=== PATIENT | female | born 1955 | race Caucasian/White ===

== ENCOUNTER 2022-09-22 12:40 | Emergency (ER) | payer OTHER, SELFPAY ==
[2022-09-22] VITALS (18 sets, daily range): BP systolic 136–154; BP diastolic 72–101; PULSE 80–97; RESP 15–35; TEMP 36.8; O2SAT 94–98; BMI 41.3
--- NOTE | 2022-09-22 13:20 | CT_ITS ---
[address] [address] Patient Name: CORI HILTON MRN: [id number] date: 1955 Sex: F Assigned Patient Location: ER Current Patient Location: ER Accession/Order Number: [id number] Exam Date: 09/22/2022 14:20 Report Date: 09/22/2022 14:55 At the request of: DERECK CASTRO Procedure: CT abdomen pelvis w con EXAMINATION: CT abdomen pelvis w con HISTORY: Left flank pain, vomiting and diarrhea COMPARISON: CT abdomen pelvis 02/10/2007 TECHNIQUE: Axial, Coronal, and Sagittal images were obtained without and/or with IV contrast as indicated by examination type. Dose reduction techniques were achieved by using automated exposure control and/or adjustment of mA and/or kV according to patient size and/or use of iterative reconstruction technique. FINDINGS: LUNG BASES: No visible pulmonary or pleural disease. LIVER: No enlargement, atrophy, suspicious density, or significant focal lesion. BILIARY: Cholecystectomy. PANCREAS: No lesion, fluid collection, or abnormal duct dilatation. SPLEEN: No enlargement or focal lesion. ADRENALS: No mass or enlargement. KIDNEYS: No mass, obstruction, or calcification. BOWEL/MESENTERY: No visible mass, obstruction, or bowel wall thickening. A few small noninflamed diverticula involving the sigmoid colon. AORTA/VASCULAR: No aneurysm or dissection. RETROPERITONEUM: No mass or adenopathy. LYMPH NODES: No adenopathy. URINARY BLADDER: No visible focal wall thickening, lesion, or calculus. PELVIC ORGANS: Hysterectomy. ABDOMINAL WALL: Small fat filled umbilical hernia without strangulation. BONES: No bony lesion or fracture. OTHER: Negative. CT/CT abdomen pelvis w con IMPRESSION: 1.Relatively empty small bowel and colon consistent with patient's history of diarrhea. No inflammatory changes or mass. 2.No other acute or suspicious findings. Electronically authenticated by: NOREEN PABLO Date: 09/22/2022 14:55
--- NOTE | 2022-09-22 13:22 | ED_ITS ---
Documented by User: BALDO Grace 09/22/22 15:22 HPI - Abdominal Pain General Chief Complaint: Abdominal Pain Stated Complaint: vomiting/ diarrhea Time Seen by Provider: 09/22/22 13:10 History of Present Illness HPI narrative: patient is a 67-year-old female who presents to the emergency department for the evaluation of left flank pain radiating into the left groin for over six weeks. She states she had an outpatient x-ray with her PCP as she was having left flank pain and urinary urgency initially. She states she was placed on an antibiotic for a suspected urinary tract infection. She has continued to have vomiting and diarrhea since the flank pain started as well. She has not had any objective fevers. She reports multiple episodes of diarrhea daily. She has had no blood in her stool. She denies any history of kidney stones, colitis or div erticulitis. She took a seven day course of antibiotics six weeks ago and has not been on any continued antibiotic courses. She states she is continuing to urinate regularly. she presents to the Emergency Room today as her symptoms are not improving and she is feeling very weak and lightheaded. Related Data Previous Rx's Medication Instructions Recorded dicyclomine 20 mg tablet 20 mg PO QID PRN abdominal pain 09/22/22 #12 tabs ondansetron 4 mg disintegrating 4 mg PO Q6H PRN nausea and 09/22/22 tablet vomiting #12 tabs Allergies Allergy/AdvReac Type Severity Reaction Status Date / Time Penicillins Allergy Intermediate Verified 09/22/22 12:53 Review of Systems ROS Constitutional Denies: fever or chills Cardiovascular Denies: chest pain Respiratory Denies: shortness of breath or cough Gastrointestinal Reports: abdominal pain, nausea, vomiting and diarrhea Genitourinary Reports: urinary frequency Musculoskeletal Reports: back pain Integumentary/Breast Denies: rash Neurological Denies: headache Psychiatric Reports: anxiety Hematologic/Lymphatic Denies: easy bruising Exam Narrative Exam Narrative: Gen.: Awake, alert, in no distress Head: Normocephalic, atraumatic ENT: Moist mucous membranes Respiratory: No respiratory distress, lungs clear bilaterally Cardio: Regular rate and rhythm Gastrointestinal: Abdomen is soft, nondistended and nontender to palpation back: No CVA tenderness Extremities: Moves extremities equally, no injuries noted Psych: Normal mood and affect Neuro: No focal neuro deficit Skin: Warm, dry, intact Constitutional Vital Signs, click to edit/add: Last Vital Signs Temp 98.3 F 09/22/22 12:50 Pulse 81 09/22/22 15:30 Resp 19 09/22/22 15:30 BP 138/72 09/22/22 15:38 Pulse Ox 97 09/22/22 15:30 Course Vital Signs Vital signs: Vital Signs Temperature 98.3 F 09/22/22 12:50 Pulse Rate 95 H 09/22/22 12:50 Respiratory Rate 20 09/22/22 12:50 Blood Pressure 145/82 H 09/22/22 12:50 Pulse Oximetry 98 09/22/22 12:50 Temperature 98.3 F 09/22/22 12:50 Pulse Rate 81 09/22/22 15:30 Respiratory Rate 19 09/22/22 15:30 Blood Pressure 138/72 09/22/22 15:38 Pulse Oximetry 97 09/22/22 15:30 MDM - Abdominal Pain MDM Narrative Medical decision making narrative: patient treated with IV fluids, Levsin, Toradol, Zofran. She had no episodes of emesis in the emergency department. She had no episodes of diarrhea in the emergency department. Lab studies are unremarkable, CT of the abdomen and pelvis is unremarkable and urine specimen with no evidence of urinary tract infection. Patient will be given an order for gastrointestinal panel for home, Bentyl and Zofran given for home to follow-up with PCP and return to the Emergency Room if symptoms change or worsen. Abdomen is soft and benign on recheck by attending physician prior to discharge. Medical Records Attestation: I reviewed the patient's medical records. Lab Data Attestation: I reviewed the patient's lab results. Labs: Lab Results 09/22/22 09/22/22 Range/Units 13:05 13:30 WBC 6.5 (4.0-11.0) 10^3/uL RBC 5.54 H (4.20-5.40) 10^6/uL Hgb 15.4 (12.0-16.0) g/dL Hct 47.2 (36.0-48.0) % MCV 85.2 (81.0-99.0) fL MCH 27.8 (26.7-34.0) pg MCHC 32.6 (29.9-35.2) g/dL RDW 13.2 (11.0-15.0) % Plt Count 220 (150-450) 10^3/uL MPV 11.3 (9.5-13.5) fL Neut % (Auto) 72.1 (43.0-75.0) % Lymph % (Auto) 17.7 L (20.5-60.0) % [place] % (Auto) 6.3 (1.7-12.0) % Eos % (Auto) 3.1 (0.9-7.0) % Baso % (Auto) 0.6 (0.2-2.0) % Neut # (Auto) 4.7 (1.4-6.5) 10^3/uL Lymph # (Auto) 1.2 (1.2-3.8) 10^3/uL [place] # (Auto) 0.4 (0.3-0.8) 10^3/uL Eos # (Auto) 0.2 (0.0-0.7) 10^3/uL Baso # (Auto) 0.0 (0.0-0.1) 10^3/uL Abs Immat Gran (auto) 0.01 (0.00-0.03) 10^3/uL Imm/Tot Granulo (auto) 0.2 (0.0-0.5) % Sodium 133 L (136-145) mmol/L Potassium 4.1 (3.5-5.1) mmol/L Chloride 101 (98-107) mmol/L Carbon Dioxide 25.8 (21.0-32.0) mmol/L Anion Gap 10.3 BUN 16.0 (7.0-18.0) mg/dL Creatinine 0.82 (0.55-1.02) mg/dL Est GFR ( Amer) >60 (>=60) Est GFR (Non-Af Amer) >60 (>=60) BUN/Creatinine Ratio 19.5 Glucose 143 H (74-106) mg/dL Lactate 1.4 (0.4-2.0) mmol/L Calcium 8.7 (8.5-10.1) mg/dL Total Bilirubin 0.6 (0.2-1.0) mg/dL AST 14 L (15-37) U/L ALT 29 (14-59) U/L Alkaline Phosphatase 76 (46-116) U/L Troponin I High Sens 4.8 (4.0-51.3) pg/mL Total Protein 7.1 (6.4-8.2) g/dL Albumin 3.1 L (3.4-5.0) g/dL Globulin 4.0 g/dL Albumin/Globulin Ratio 0.8 Lipase 109.0 (73.0-393.0) U/L Urine Color Lt. yellow (YELLOW) Urine Clarity Clear (CLEAR) Urine pH 5.5 (5.0-9.0) Ur Specific [place] <=1.005 A (1.005-1.025) Urine Protein Negative (NEG/TRACE) mg/dL Urine Glucose (UA) Negative (NEGATIVE) mg/dL Urine Ketones Negative (NEGATIVE) mg/dL Urine Occult Blood Negative (NEGATIVE) Urine Nitrite Negative (NEGATIVE) Urine Bilirubin Negative (NEGATIVE) Urine Urobilinogen 0.2 (0.2-1.0) EU/dL Ur Leukocyte Esterase Negative (NEGATIVE) Imaging Data CT scan - abdomen: Attestation: I have reviewed the pertinent imaging results. Radiologist's impression: Procedure: CT abdomen pelvis w con EXAMINATION: CT abdomen pelvis w con HISTORY: Left flank pain, vomiting and diarrhea COMPARISON: CT abdomen pelvis 02/10/2007 TECHNIQUE: Axial, Coronal, and Sagittal images were obtained without and/or with IV contrast as indicated by examination type. Dose reduction techniques were achieved by using automated exposure control and/or adjustment of mA and/or kV according to patient size and/or use of iterative reconstruction technique. FINDINGS: LUNG BASES: No visible pulmonary or pleural disease. LIVER: No enlargement, atrophy, suspicious density, or significant focal lesion. BILIARY: Cholecystectomy. PANCREAS: No lesion, fluid collection, or abnormal duct dilatation. SPLEEN: No enlargement or focal lesion. ADRENALS: No mass or enlargement. KIDNEYS: No mass, obstruction, or calcification. BOWEL/MESENTERY: No visible mass, obstruction, or bowel wall thickening. A few small noninflamed diverticula involving the sigmoid colon. AORTA/VASCULAR: No aneurysm or dissection. RETROPERITONEUM: No mass or adenopathy. LYMPH NODES: No adenopathy. URINARY BLADDER: No visible focal wall thickening, lesion, or calculus. PELVIC ORGANS: Hysterectomy. ABDOMINAL WALL: Small fat filled umbilical hernia without strangulation. BONES: No bony lesion or fracture. OTHER: Negative. IMPRESSION: 1.Relatively empty small bowel and colon consistent with patient's history of diarrhea. No inflammatory changes or mass. 2.No other acute or suspicious findings. Electronically authenticated by: NOREEN PABLO Date: 09/22/2022 14:55 ECG Data Attestation: I personally reviewed and interpreted this ECG as follows: (normal sinus rhythm at a rate of ninety-three, no acute ST elevation or ectopy. EKG reviewed by attending physician) ECG interpretation date: 09/22/22 ECG interpretation time: 14:26 Discharge Plan Discharge Chief Complaint: Abdominal Pain Clinical Impression: Acute left flank pain, Vomiting and diarrhea Patient Disposition: Home, Self-Care Time of Disposition Decision: 15:19 Condition: Good Prescriptions / Home Meds: New dicyclomine 20 mg tablet 20 mg PO QID PRN (Reason: abdominal pain) Qty: 12 0RF ondansetron 4 mg tablet,disintegrating 4 mg PO Q6H PRN (Reason: nausea and vomiting) Qty: 12 0RF Instructions: Acute Nausea and Vomiting (DC), Acute Diarrhea (ED), Flank Pain (ED) Additional Instructions: GI panel as an outpatient Stand Alone Forms: Portal Instructions Referrals: JOHANNA LOPEZ [Primary Care Provider] - 1 week Discharge Date/Time: 09/22/22 15:40 Documented by User: Héctor Goodson MD 09/22/22 20:57 HPI - Abdominal Pain General Chief Complaint: Abdominal Pain Stated Complaint: vomiting/ diarrhea Time Seen by Provider: 09/22/22 13:10 Related Data Previous Rx's Medication Instructions Recorded dicyclomine 20 mg tablet 20 mg PO QID PRN abdominal pain 09/22/22 #12 tabs ondansetron 4 mg disintegrating 4 mg PO Q6H PRN nausea and 09/22/22 tablet vomiting #12 tabs Allergies Allergy/AdvReac Type Severity Reaction Status Date / Time Penicillins Allergy Intermediate Verified 09/22/22 12:53 Exam Constitutional Vital Signs, click to edit/add: Last Vital Signs Temp 98.3 F 09/22/22 12:50 Pulse 81 09/22/22 15:30 Resp 19 09/22/22 15:30 BP 138/72 09/22/22 15:38 Pulse Ox 97 09/22/22 15:30 Course Vital Signs Vital signs: Vital Signs Temperature 98.3 F 09/22/22 12:50 Pulse Rate 95 H 09/22/22 12:50 Respiratory Rate 20 09/22/22 12:50 Blood Pressure 145/82 H 09/22/22 12:50 Pulse Oximetry 98 09/22/22 12:50 Temperature 98.3 F 09/22/22 12:50 Pulse Rate 81 09/22/22 15:30 Respiratory Rate 19 09/22/22 15:30 Blood Pressure 138/72 09/22/22 15:38 Pulse Oximetry 97 09/22/22 15:30 MDM - Abdominal Pain MDM Narrative Medical decision making narrative: patient treated with IV fluids, Levsin, Toradol, Zofran. She had no episodes of emesis in the emergency department. She had no episodes of diarrhea in the emergency department. Lab studies are unremarkable, CT of the abdomen and pelvis is unremarkable and urine specimen with no evidence of urinary tract infection. Patient will be given an order for gastrointestinal panel for home, Bentyl and Zofran given for home to follow-up with PCP and return to the Emergency Room if symptoms change or worsen. Abdomen is soft and benign on recheck by attending physician prior to discharge. I, Dr Goodson, have reviewed the above progress note and course of action in the ER; agree with the above. I have personally seen and evaluated this patient, gone over history and physical, and discussed disposition and treatment plan with the patient. Patient understands importance of finding of a gastrointestinal physician for chronic diarrhea and needs of a colonoscopy. Patient's last colonoscopy was in 2014. Patient's daughter knows that she needs to have another colonoscopy, there is a history of colon cancer in the family as well. Patient believes that her diarrhea is tied to a beta opal that she takes for anxiety. Patient was told to follow up with her psychiatrist again to see if she should switch her medication to something else since more effective and possibly not causing diarrhea. Patient had a popsicle with no difficulty. Lab Data Labs: Lab Results 09/22/22 09/22/22 Range/Units 13:05 13:30 WBC 6.5 (4.0-11.0) 10^3/uL RBC 5.54 H (4.20-5.40) 10^6/uL Hgb 15.4 (12.0-16.0) g/dL Hct 47.2 (36.0-48.0) % MCV 85.2 (81.0-99.0) fL MCH 27.8 (26.7-34.0) pg MCHC 32.6 (29.9-35.2) g/dL RDW 13.2 (11.0-15.0) % Plt Count 220 (150-450) 10^3/uL MPV 11.3 (9.5-13.5) fL Neut % (Auto) 72.1 (43.0-75.0) % Lymph % (Auto) 17.7 L (20.5-60.0) % [place] % (Auto) 6.3 (1.7-12.0) % Eos % (Auto) 3.1 (0.9-7.0) % Baso % (Auto) 0.6 (0.2-2.0) % Neut # (Auto) 4.7 (1.4-6.5) 10^3/uL Lymph # (Auto) 1.2 (1.2-3.8) 10^3/uL [place] # (Auto) 0.4 (0.3-0.8) 10^3/uL Eos # (Auto) 0.2 (0.0-0.7) 10^3/uL Baso # (Auto) 0.0 (0.0-0.1) 10^3/uL Abs Immat Gran (auto) 0.01 (0.00-0.03) 10^3/uL Imm/Tot Granulo (auto) 0.2 (0.0-0.5) % Sodium 133 L (136-145) mmol/L Potassium 4.1 (3.5-5.1) mmol/L Chloride 101 (98-107) mmol/L Carbon Dioxide 25.8 (21.0-32.0) mmol/L Anion Gap 10.3 BUN 16.0 (7.0-18.0) mg/dL Creatinine 0.82 (0.55-1.02) mg/dL Est GFR ( Amer) >60 (>=60) Est GFR (Non-Af Amer) >60 (>=60) BUN/Creatinine Ratio 19.5 Glucose 143 H (74-106) mg/dL Lactate 1.4 (0.4-2.0) mmol/L Calcium 8.7 (8.5-10.1) mg/dL Total Bilirubin 0.6 (0.2-1.0) mg/dL AST 14 L (15-37) U/L ALT 29 (14-59) U/L Alkaline Phosphatase 76 (46-116) U/L Troponin I High Sens 4.8 (4.0-51.3) pg/mL Total Protein 7.1 (6.4-8.2) g/dL Albumin 3.1 L (3.4-5.0) g/dL Globulin 4.0 g/dL Albumin/Globulin Ratio 0.8 Lipase 109.0 (73.0-393.0) U/L Urine Color Lt. yellow (YELLOW) Urine Clarity Clear (CLEAR) Urine pH 5.5 (5.0-9.0) Ur Specific [place] <=1.005 A (1.005-1.025) Urine Protein Negative (NEG/TRACE) mg/dL Urine Glucose (UA) Negative (NEGATIVE) mg/dL Urine Ketones Negative (NEGATIVE) mg/dL Urine Occult Blood Negative (NEGATIVE) Urine Nitrite Negative (NEGATIVE) Urine Bilirubin Negative (NEGATIVE) Urine Urobilinogen 0.2 (0.2-1.0) EU/dL Ur Leukocyte Esterase Negative (NEGATIVE) Discharge Plan Discharge Chief Complaint: Abdominal Pain Clinical Impression: Acute left flank pain, Vomiting and diarrhea Patient Disposition: Home, Self-Care Time of Disposition Decision: 15:19 Condition: Good Prescriptions / Home Meds: New dicyclomine 20 mg tablet 20 mg PO QID PRN (Reason: abdominal pain) Qty: 12 0RF ondansetron 4 mg tablet,disintegrating 4 mg PO Q6H PRN (Reason: nausea and vomiting) Qty: 12 0RF Instructions: Acute Nausea and Vomiting (DC), Acute Diarrhea (ED), Flank Pain (ED) Additional Instructions: GI panel as an outpatient Stand Alone Forms: Portal Instructions Referrals: JOHANNA LOPEZ [Primary Care Provider] - 1 week Discharge Date/Time: 09/22/22 15:40
[2022-09-22] MEDS: HYOSCYAMINE SULFATE 0.125 MG TAB.SUBL SL (13:29)
[2022-09-22] MEDS: KETOROLAC TROMETHAMINE 30 MG/ML VIAL IVP (13:30)
[2022-09-22] MEDS: ONDANSETRON PF 4 MG/2 ML VIAL IV (13:30)
[2022-09-22] MEDS: 0.9 % SODIUM CHLORIDE 1,000 ML 999 ML IV (13:30)
[2022-09-22 13:31] LABS: Basophils Percent Auto 0.6 % (0.2-2.0); Eosinophils Absolute Auto 0.2 10^3/uL (0.0-0.7); Eosinophils Percent Auto 3.1 % (0.9-7.0); Hematocrit 47.2 % (36.0-48.0); Hemoglobin 15.4 g/dL (12.0-16.0); Immature Granulocytes Abs Auto 0.01 10^3/uL (0.00-0.03); Immature Granulocytes Pct Auto 0.2 % (0.0-0.5); Lymphocytes Absolute Auto 1.2 10^3/uL (1.2-3.8); Lymphocytes Percent Auto 17.7 % (20.5-60.0); Mean Corpuscular HGB Conc 32.6 g/dL (29.9-35.2); Mean Corpuscular Hemoglobin 27.8 pg (26.7-34.0); Mean Corpuscular Volume 85.2 fL (81.0-99.0); Mean Platelet Volume 11.3 fL (9.5-13.5); Monocytes Absolute Auto 0.4 10^3/uL (0.3-0.8); Monocytes Percent Auto 6.3 % (1.7-12.0); Neutrophils Absolute Auto 4.7 10^3/uL (1.4-6.5); Neutrophils Percent Auto 72.1 % (43.0-75.0); Platelet Count 220 10^3/uL (150-450); Red Blood Count 5.54 10^6/uL (4.20-5.40); Red Cell Distribution Width 13.2 % (11.0-15.0); White Blood Count 6.5 10^3/uL (4.0-11.0)
[2022-09-22 13:47] LABS: Lactate/Lactic Acid 1.4 mmol/L (0.4-2.0)
[2022-09-22 13:57] LABS: Alanine Aminotransferase 29 U/L (14-59); Albumin Globulin Ratio 0.8; Albumin Level 3.1 g/dL (3.4-5.0); Alkaline Phosphatase 76 U/L (46-116); Anion Gap 10.3; Aspartate Amino Transferase 14 U/L (15-37); BUN Creatinine Ratio 19.5; Bilirubin Total 0.6 mg/dL (0.2-1.0); Calcium 8.7 mg/dL (8.5-10.1); Carbon Dioxide 25.8 mmol/L (21.0-32.0); Chloride 101 mmol/L (98-107); Estimated GFR (African America >60 (>=60); Estimated GFR (Non-African Ame >60 (>=60); Glucose 143 mg/dL (74-106); Potassium 4.1 mmol/L (3.5-5.1); Sodium 133 mmol/L (136-145); Total Protein 7.1 g/dL (6.4-8.2); Troponin I High Sensitivity 4.8 pg/mL (4.0-51.3)
[2022-09-22 14:06] LABS: Bilirubin Urine NEGATIVE (NEGATIVE); Blood Urine NEGATIVE (NEGATIVE); Clarity Urine CLEAR (CLEAR); Color Urine LT. YELLOW (YELLOW); Glucose Urine UA NEGATIVE (NEGATIVE); Ketones Urine NEGATIVE (NEGATIVE); Leukocyte Esterase Urine NEGATIVE (NEGATIVE); Nitrite Urine NEGATIVE (NEGATIVE); Protein Urine NEGATIVE (NEG/TRACE); Specific Gravity Urine <=1.005 (1.005-1.025); Urobilinogen Urine 0.2 EU/dL (0.2-1.0); pH Urine 5.5 (5.0-9.0)
[2022-09-22 14:09] LABS: Urine Microscopic Indicated NO
--- NOTE | 2022-09-22 15:23 | ECG_ITS ---
[facility] [place] Test Date: 2022-09-22 Pat Name: CORI HILTON Department: Room: - Gender: Female [employer]: : 1955 Requested By: [id number] Order Number: [id number] Reading MD: DAVION JUNIOR Measurements Intervals [place] Rate: 93 P: 57 UT: 158 QRS: 33 QRSD: 78 T: 60 QT: 364 QTc: 415 Interpretive Statements 1100 Sinus rhythm 9110 normal ECG No previous ECG available for comparison Electronically Signed On 09-22-2022 20:29:11 EDT by DAVION JUNIOR
== END 2022-09-22 15:40 | disposition home or self-care (01) ==
PROVIDERS: Physician Assistant; Emergency Provider Emergency Medicine; PCP Family Medicine
DX: R10.9 Unspecified abdominal pain (principal); R19.7 Diarrhea, unspecified; R11.10 Vomiting, unspecified
CPT/HCPCS: 36415; 74177; 80053; 81003; 83605; 83690; 84484; 85025; 87507; 93005; 96374; 96375; 99285; Q9967

== ENCOUNTER 2022-11-16 08:23 | Emergency (ER) | payer OTHER, SELFPAY ==
[2022-11-16 08:32] VITALS: BP 157/106; PULSE 90; RESP 16; O2SAT 98; BMI 39.9
--- NOTE | 2022-11-16 08:43 | ED.BACK1 ---
HPI - Back Pain/Injury General Chief Complaint: Back Pain/Injury Stated Complaint: FLANK PAIN Time Seen by Provider: 11/16/22 08:39 Source: patient Mode of arrival: Wheelchair Limitations: no limitations History of Present Illness HPI Narrative: 67-year-old female presents for left flank pain. She's had it for a few weeks. She states she had a CAT scan and no specific cause was found. No injury or dysuria or hematuria or rash. The pain seems to come and go and is moderate to severe. Related Data Home Medications Medication Instructions Recorded Confirmed alprazolam 1 mg tablet 1 mg PO QID PRN anxiety 11/16/22 11/16/22 alprazolam 2 mg tablet,extended 2 mg PO BID 11/16/22 11/16/22 release 24 hr buspirone 10 mg tablet 20 mg PO BID 11/16/22 11/16/22 glimepiride 2 mg tablet 2 mg PO DAILY 11/16/22 11/16/22 lisinopril 20 mg tablet 20 mg PO DAILY 11/16/22 11/16/22 phenelzine 15 mg tablet 15 mg PO BID 11/16/22 11/16/22 pioglitazone 45 mg tablet 45 mg PO DAILY 11/16/22 11/16/22 promethazine 12.5 mg tablet 12.5 mg PO Q6H PRN nausea and 11/16/22 11/16/22 vomiting propranolol 20 mg tablet 20 mg PO Q12H 11/16/22 11/16/22 Previous Rx's Medication Instructions Recorded dicyclomine 20 mg tablet 20 mg PO QID PRN abdominal pain 09/22/22 #12 tabs ondansetron 4 mg disintegrating 4 mg PO Q6H PRN nausea and 09/22/22 tablet vomiting #12 tabs acetaminophen 300 mg-codeine 30 mg 1 tab PO Q6H PRN pain #20 tabs 11/16/22 tablet methocarbamol 500 mg tablet 500 mg PO Q6H PRN pain #20 tabs 11/16/22 Allergies Allergy/AdvReac Type Severity Reaction Status Date / Time Penicillins Allergy Intermediate Verified 09/22/22 12:53 Review of Systems ROS Narrative A ten point review of systems is negative except as noted above. PFSH PFSH Social History Smoking status: Never smoker Exam Narrative Exam Narrative: Nurses note and vital signs reviewed and patient is not hypoxic. General: The patient appears uncomfortable Skin: Warm, dry, no pallor noted. There is no rash noted including in the left flank area. Head: Normocephalic, atraumatic Eye: Normal conjunctiva, no drainage Ears, Nose, Mouth, and Throat: oral mucosa is moist. Nares patent. Cardiovascular: Regular Rate and Rhythm Respiratory: Patient is in no distress, no accessory muscle use, lungs are clear to auscultation, no wheezing, rales or rhonchi Back: non-tender, no CVA tenderness bilaterally to percussion. . It does not seem to be any palpable tenderness to her back including the flank area. GI: no tenderness to palpation, no masses appreciated. No rebound, guarding, or rigidity noted. Musculoskeletal: The patient has no evidence of calf tenderness, no pitting edema, symmetrical pulses noted bilaterally Neurological: A&O, normal speech Psychiatric: Cooperative Constitutional Vital Signs, click to edit/add: Last Vital Signs Pulse 79 11/16/22 10:02 Resp 16 11/16/22 10:02 BP 120/84 11/16/22 10:02 Pulse Ox 98 11/16/22 10:02 O2 Del Method Room Air 11/16/22 08:32 Course Vital Signs Vital signs: Vital Signs Pulse Rate 90 11/16/22 08:32 Respiratory Rate 16 11/16/22 08:32 Blood Pressure 157/106 H 11/16/22 08:32 Pulse Oximetry 98 11/16/22 08:32 Oxygen Delivery Method Room Air 11/16/22 08:32 Pulse Rate 79 11/16/22 10:02 Respiratory Rate 16 11/16/22 10:02 Blood Pressure 120/84 11/16/22 10:02 Pulse Oximetry 98 11/16/22 10:02 Oxygen Delivery Method Room Air 11/16/22 08:32 MDM - Back Pain/Injury MDM Narrative Medical decision making narrative: the CAT scan she had a few days ago is negative and today's workup is negative. Urinalysis is negative. No evidence of urinary tract infection or pyelonephritis. There is no rash to suggest zoster. She'll be treated symptomatically. Treatment diagnosis and follow-up were discussed with the patient. Differential Diagnosis Differential diagnosis: Likely other (urinary tract infection, pyelonephritis, herpes zoster, muscle strain) Lab Data Attestation: I reviewed the patient's lab results. Labs: Lab Results 11/16/22 11/16/22 Range/Units 08:35 09:20 WBC 5.9 (4.0-11.0) 10^3/uL RBC 5.31 (4.20-5.40) 10^6/uL Hgb 15.3 (12.0-16.0) g/dL Hct 46.9 (36.0-48.0) % MCV 88.3 (81.0-99.0) fL MCH 28.8 (26.7-34.0) pg MCHC 32.6 (29.9-35.2) g/dL RDW 13.2 (11.0-15.0) % Plt Count 181 (150-450) 10^3/uL MPV 11.7 (9.5-13.5) fL Neut % (Auto) 73.7 (43.0-75.0) % Lymph % (Auto) 17.5 L (20.5-60.0) % [place] % (Auto) 5.6 (1.7-12.0) % Eos % (Auto) 2.7 (0.9-7.0) % Baso % (Auto) 0.5 (0.2-2.0) % Neut # (Auto) 4.4 (1.4-6.5) 10^3/uL Lymph # (Auto) 1.0 L (1.2-3.8) 10^3/uL [place] # (Auto) 0.3 (0.3-0.8) 10^3/uL Eos # (Auto) 0.2 (0.0-0.7) 10^3/uL Baso # (Auto) 0.0 (0.0-0.1) 10^3/uL Abs Immat Gran (auto) 0.00 (0.00-0.03) 10^3/uL Imm/Tot Granulo (auto) 0.0 (0.0-0.5) % Sodium 141 (136-145) mmol/L Potassium 3.9 (3.5-5.1) mmol/L Chloride 105 (98-107) mmol/L Carbon Dioxide 30.2 (21.0-32.0) mmol/L Anion Gap 9.7 BUN 15.0 (7.0-18.0) mg/dL Creatinine 0.91 (0.55-1.02) mg/dL Est GFR ( Amer) >60 (>=60) Est GFR (Non-Af Amer) >60 (>=60) BUN/Creatinine Ratio 16.5 Glucose 144 H (74-106) mg/dL Calcium 8.6 (8.5-10.1) mg/dL Urine Color Lt. yellow (YELLOW) Urine Clarity Clear (CLEAR) Urine pH 6.5 (5.0-9.0) Ur Specific [place] <=1.005 A (1.005-1.025) Urine Protein Negative (NEG/TRACE) mg/dL Urine Glucose (UA) Negative (NEGATIVE) mg/dL Urine Ketones Negative (NEGATIVE) mg/dL Urine Occult Blood Negative (NEGATIVE) Urine Nitrite Negative (NEGATIVE) Urine Bilirubin Negative (NEGATIVE) Urine Urobilinogen 0.2 (0.2-1.0) EU/dL Ur Leukocyte Esterase Negative (NEGATIVE) Urine RBC None seen (0-2) #/HPF Urine WBC None seen (NONE SEEN) #/HPF Ur Squamous Epith Cells Few A (NONE/RARE) #/LPF Urine Crystals None seen (None Seen) #/HPF Urine Bacteria None seen (NONE SEEN) #/HPF Urine Casts None seen (NONE SEEN) #/LPF Urine Mucus None seen (NONE SEEN) Ur Culture Indicated? No Discharge Plan Discharge Chief Complaint: Back Pain/Injury Clinical Impression: Acute left flank pain Patient Disposition: Home, Self-Care Time of Disposition Decision: 10:01 Condition: Good Prescriptions / Home Meds: New acetaminophen-codeine 300-30 mg tablet 1 tab PO Q6H PRN (Reason: pain) Qty: 20 0RF methocarbamol 500 mg tablet 500 mg PO Q6H PRN (Reason: pain) Qty: 20 0RF No Action dicyclomine 20 mg tablet 20 mg PO QID PRN (Reason: abdominal pain) Qty: 12 0RF ondansetron 4 mg tablet,disintegrating 4 mg PO Q6H PRN (Reason: nausea and vomiting) Qty: 12 0RF alprazolam 1 mg tablet 1 mg PO QID PRN (Reason: anxiety) alprazolam 2 mg tablet extended release 24 hr 2 mg PO BID buspirone 10 mg tablet 20 mg PO BID glimepiride 2 mg tablet 2 mg PO DAILY lisinopril 20 mg tablet 20 mg PO DAILY phenelzine 15 mg tablet 15 mg PO BID pioglitazone 45 mg tablet 45 mg PO DAILY promethazine 12.5 mg tablet 12.5 mg PO Q6H PRN (Reason: nausea and vomiting) propranolol 20 mg tablet 20 mg PO Q12H Instructions: Flank Pain (ED) Stand Alone Forms: Portal Instructions Referrals: JOHANNA LOPEZ [Primary Care Provider] - 1 week
[2022-11-16 09:00] LABS: Basophils Percent Auto 0.5 % (0.2-2.0); Eosinophils Absolute Auto 0.2 10^3/uL (0.0-0.7); Eosinophils Percent Auto 2.7 % (0.9-7.0); Hematocrit 46.9 % (36.0-48.0); Hemoglobin 15.3 g/dL (12.0-16.0); Lymphocytes Percent Auto 17.5 % (20.5-60.0); Mean Corpuscular HGB Conc 32.6 g/dL (29.9-35.2); Mean Corpuscular Hemoglobin 28.8 pg (26.7-34.0); Mean Corpuscular Volume 88.3 fL (81.0-99.0); Mean Platelet Volume 11.7 fL (9.5-13.5); Monocytes Absolute Auto 0.3 10^3/uL (0.3-0.8); Monocytes Percent Auto 5.6 % (1.7-12.0); Neutrophils Absolute Auto 4.4 10^3/uL (1.4-6.5); Neutrophils Percent Auto 73.7 % (43.0-75.0); Platelet Count 181 10^3/uL (150-450); Red Blood Count 5.31 10^6/uL (4.20-5.40); Red Cell Distribution Width 13.2 % (11.0-15.0); White Blood Count 5.9 10^3/uL (4.0-11.0)
[2022-11-16] MEDS: KETOROLAC TROMETHAMINE 30 MG/ML VIAL IVP (09:04)
[2022-11-16 09:10] LABS: Anion Gap 9.7; BUN Creatinine Ratio 16.5; Calcium 8.6 mg/dL (8.5-10.1); Carbon Dioxide 30.2 mmol/L (21.0-32.0); Chloride 105 mmol/L (98-107); Estimated GFR (African America >60 (>=60); Estimated GFR (Non-African Ame >60 (>=60); Glucose 144 mg/dL (74-106); Potassium 3.9 mmol/L (3.5-5.1); Sodium 141 mmol/L (136-145)
[2022-11-16 09:33] LABS: Bilirubin Urine NEGATIVE (NEGATIVE); Blood Urine NEGATIVE (NEGATIVE); Clarity Urine CLEAR (CLEAR); Color Urine LT. YELLOW (YELLOW); Glucose Urine UA NEGATIVE (NEGATIVE); Ketones Urine NEGATIVE (NEGATIVE); Leukocyte Esterase Urine NEGATIVE (NEGATIVE); Nitrite Urine NEGATIVE (NEGATIVE); Protein Urine NEGATIVE (NEG/TRACE); Specific Gravity Urine <=1.005 (1.005-1.025); Urobilinogen Urine 0.2 EU/dL (0.2-1.0); pH Urine 6.5 (5.0-9.0)
[2022-11-16 09:41] LABS: Bacteria Urine NONE SEEN #/HPF (NONE SEEN); Cast Seen? NONE SEEN #/LPF (NONE SEEN); Crystals Seen? None Seen #/HPF (None Seen); Mucus Urine NONE SEEN (NONE SEEN); RBC Urine NONE SEEN #/HPF (0-2); Squamous Epithelial Cell Urine FEW #/LPF (NONE/RARE); Urine Culture Indicated NO; WBC Urine NONE SEEN #/HPF (NONE SEEN)
[2022-11-16 10:02] VITALS: BP 120/84; PULSE 79; RESP 16; O2SAT 98
== END 2022-11-16 10:11 | disposition home or self-care (01) ==
PROVIDERS: Emergency Provider Emergency Medicine; PCP Family Medicine
DX: R10.9 Unspecified abdominal pain (principal); Z79.899 Other long term (current) drug therapy
CPT/HCPCS: 36415; 80048; 81001; 85025; 96374; 99285

== ENCOUNTER 2022-12-01 13:11 | Outpatient (OUT) | payer OTHER, SELFPAY | END 2022-12-01 13:12 | disposition home or self-care (01) | LOC: PST 13:12 | PROVIDERS: PCP Family Medicine; Visit Provider Surgery | DX: Z01.818 Encounter for other preprocedural examination (principal); R19.7 Diarrhea, unspecified; R63.0 Anorexia ==

== ENCOUNTER 2022-12-10 06:37 | Day surgery (SDC) | payer OTHER, SELFPAY ==
[2022-12-10 07:14] VITALS: BP 162/93; PULSE 102; RESP 18; TEMP 35.9; O2SAT 97; BMI 42.0
--- NOTE | 2022-12-10 07:15 | PM.GSPRC ---
Date of procedure: 12/10/22 Indications for Procedure: chronic nausea Diarrhea History of colon polyps Family history of colon cancer in mother diagnosed at age 60 Pre-op diagnosis: chronic nausea; diarrhea, history of colon polyps, family history of colon Post-op diagnosis: same as pre-op (small lipoma antrum of stomach; otherwise normal duodenum, stomach, esophagus rule out gastritis/Diverticulosis of colon rule out collagenous colitis) Procedure: EGD with biopsy antrum rule out gastritis Colonoscopy with biopsy colon random to rule out collagenous colitis due to chronic diarrhea Findings: diverticulosis of colon Lipoma stomach Anesthesia: MAC Surgeon: Blair Echeverria Procedure Summary: PROCEDURE: The patient was taken to the Endoscopy Suite, placed in the left lateral recumbent position, given IV sedation as above. the Olympus EGD scope was advanced under direct visualization into the posterior pharynx esophagus stomach through the pylorus into the 1st and 2nd portions of duodenum. No polyps or tumors were found but in the stomach and the antrum showed a small lipoma and pictures were taken. There were no ulcers but there was mild inflammation and biopsies were taken of the antrum to rule out gastritis and H. pylori. The scope was retroflexed on itself looking the GE junction which was normal. The scope was then withdrawn through the esophagus which was completely normal. The scope was removed from the mouth. A rectal digital exam was performed. The sphincter tone was found to be normal. No rectal masses were appreciated. The Olympus video colonoscope was advanced under direct visualization to the rectum, sigmoid colon, descending colon, transverse colon and ascending colon to the ileocecal valve. The underside of the valve was seen. appendiceal lumen was visualized. Patient had to be turned onto her back and onto her right side in order to get into the cecum. It was a difficult colonoscopy. Abdominal pressure was also placed on the abdomen. It was difficult due to body habitus. The scope was slowly withdrawn with air being desufflated as it was withdrawn. No gross tumorsor polyps were seen but she did have a few scattered diverticuli. Random biopsies of the colon were taken rule out collagenous colitis due to chronic diarrhea. The patient tolerated the procedure well and went to the Recovery Area in satisfactory condition. I recommend the patient use a bulk laxative on a regular basis and repeat screening colonoscopy in five years due to family history of colon cancer in mother. Estimated blood loss (mL): 1 Specimens: antral biopsies Random colon biopsies Complications: No Condition: stable Disposition: PACU
[2022-12-10 07:23] LABS: Glucometer 185 mg/dL (74-106)
--- NOTE | 2022-12-10 07:36 | PC.NURSE ---
2nd IV inserted by Candida Stevenson RN with one attempt
[2022-12-10] MEDS: LACTATED RINGER'S SOLUTION 1,000 ML 50 ML IV (07:42)
[2022-12-10 08:38] VITALS: BP 92/55; PULSE 88; RESP 16; TEMP 36.6; O2SAT 96
[2022-12-10 08:53] VITALS: BP 120/56; PULSE 87; RESP 16; O2SAT 97
[2022-12-10 09:08] VITALS: BP 124/78; PULSE 80; RESP 16; O2SAT 96
[2022-12-12 12:34] LABS: H Pylori Tissue, Urease Negative
== END 2022-12-10 09:15 | disposition home or self-care (01) ==
PROVIDERS: PCP Family Medicine; Visit Provider Surgery
PROC: (CPT 43239; principal; 2022-12-10 07:30)
DX: R19.7 Diarrhea, unspecified (principal); R63.0 Anorexia; R11.0 Nausea; K29.50 Unspecified chronic gastritis without bleeding; K52.89 Other specified noninfective gastroenteritis and colitis; Z86.010 Personal history of colon polyps; Z80.0 Family history of malignant neoplasm of digestive organs; Z90.49 Acquired absence of other specified parts of digestive tract; Z90.710 Acquired absence of both cervix and uterus; Z87.891 Personal history of nicotine dependence; D17.79 Benign lipomatous neoplasm of other sites; K57.30 Diverticulosis of large intestine without perforation or abscess without bleeding; E66.01 Morbid (severe) obesity due to excess calories; Z68.41 Body mass index [BMI] 40.0-44.9, adult
CPT/HCPCS: 43239; 45380; 36415; 82948; 87077; 88305; 88342; 99999; J2704